=== PATIENT | male | born 1975 | race Caucasian/White ===

== ENCOUNTER 2017-07-27 10:04 | Emergency (ER) | payer SELFPAY ==
[~2017-07-27 10:04] MED LIST: DICL75 PO; HYDR-3533 PO; ROBA750T3 PO
[2017-07-27] MEDS ORDERED: CEPH-460 PO (13:43)
[2017-07-27] MEDS ORDERED: IBUP1TAB7 PO (13:43)
[2017-07-27] MEDS ORDERED: BACT800T5 PO (13:43)
== END 2017-07-27 10:05 | disposition left against medical advice (07) ==
LOC: NED 10:04
DX: S89.91XA Unspecified injury of right lower leg, initial encounter (principal); X58.XXXA Exposure to other specified factors, initial encounter
CPT/HCPCS: 99281

== ENCOUNTER 2017-07-27 13:27 | Emergency (ER) | payer SELFPAY ==
[2017-07-27 13:31] VITALS: BP 108/71; PULSE 82; RESP 17; TEMP 97.8; O2SAT 98
[2017-07-27] MEDS ORDERED: IBUP1TAB7 PO (13:43)
[2017-07-27] MEDS ORDERED: CEPH-460 PO (13:43)
[2017-07-27] MEDS ORDERED: BACT800T5 PO (13:43)
[2017-07-27] MEDS ORDERED: TETANUS/DIPHTHERIA TOXOID ADULT 0.5 ML VIAL IM ONE (13:45)
[2017-07-27] MEDS ORDERED: traMADol HCL 50 MG TAB PO ONE (13:45)
--- NOTE | 2017-07-27 13:49 | PD ---
HPI Chief Complaint: Pain: Acute or Chronic Time Seen by Provider: 13:34 Travel History International Travel<30 days: No Contact w/Intl Traveler<30days: No Traveled to known affect area: No History of Present Illness HPI 42-year-old male presents the ED for evaluation of wound of the right knee. Sustained 3 days ago while the patient was using a nail gun. He states that he was using his leg to brace the wood that he was nailing, shot a nail through the wound and pierced his knee. He is unsure of his last tetanus immunization. On presentation he complains of 8/10 right knee pain, throbbing, worsened by range of motion. No alleviating factors reported. He denies history of MRSA. No treatment attempted at home. PFSH Past Surgical History Abdominal Surgery: Yes (Hernia) Social History Alcohol Use: No Tobacco Use: Yes (1 PPD) Substance Use: No Allergies-Medications (Allergen,Severity, Reaction): Coded Allergies: No Known Allergies (Unverified Adverse Reaction, Unknown, 07/27/17) Reported Meds & Prescriptions Reported Meds & Active Scripts Active Ibuprofen 800 Mg Tab 800 Mg PO Q8H PRN Keflex (Cephalexin) 500 Mg Cap 500 Mg PO Q6H 7 Days Bactrim DS (Sulfamethoxazole-Trimethoprim) 800-160 Mg Tab 1 Tab PO BID Review of Systems Except as stated in HPI: all other systems reviewed are Neg Physical Exam Narrative GENERAL: Well-nourished, well-developed white male no acute distress. SKIN: Focused skin assessment warm/dry. SKIN: There is an indurated area in the right lower leg which measures about 2 cm in diameter. There is moderate purulent drainage. There is a zone of inflammation around it but no lymphangitis. No crepitus. HEAD: Normocephalic. EYES: No scleral icterus. No injection or drainage. NECK: Supple, trachea midline. No JVD or lymphadenopathy. CARDIOVASCULAR: Regular rate and rhythm without murmurs, gallops, or rubs. RESPIRATORY: Breath sounds equal bilaterally. No accessory muscle use. GASTROINTESTINAL: Abdomen soft, non-tender, nondistended. MUSCULOSKELETAL: No cyanosis, or edema. FOCUSED RIGHT LOWER EXTREMITY EXAM: 2+ DP pulse. Patient is able to flex beyond 90 and extend to 0. No tenderness to palpation of the patella or joint lines. Neurovascularly intact distally. Patient's walking with a limp. BACK: Nontender without obvious deformity. No CVA tenderness. Data Data Last Documented VS Vital Signs Date Time Temp Pulse Resp B/P (MAP) Pulse Ox O2 Delivery O2 Flow Rate FiO2 07/27/17 13:31 97.8 82 17 108/71 (83) 98 Orders Orders Tetanus/Diphtheria Tox Adult (Tetanus/Di (07/27/17 13:45) Tramadol (Ultram) (07/27/17 13:45) Ed Discharge Order (07/27/17 13:55) MDM Medical Decision Making Medical Screen Exam Complete: Yes Emergency Medical Condition: Yes Differential Diagnosis Abscess versus cellulitis versus need for tetanus immunization versus other Narrative Course 42-year-old male presents the ED for evaluation of wound of the right knee. Sustained 3 days ago while the patient was using a nail gun. He states that he was using his leg to brace the wood that he was nailing, shot a nail through the wound and pierced his knee. He is unsure of his last tetanus immunization. Denies history of MRSA. Vitals reviewed. On exam there is a cellulitic appearing distal to the joint line. There is a central punctum which weeping a small amount of purulent fluid. No crepitus noted. Patient retains full, active ROM of the knee. Tetanus immunization was updated. I marked the area of concern, provided the patient with Bactrim and Keflex. He is instructed to return to the ED for worsening of symptoms, including redness past the demarcated area. He was given detailed wound care instructions. He indicated understanding of instructions and is agreeable to care plan. Patient is stable and discharged home. Diagnosis Primary Impression: Puncture wound Additional Impression: Abscess Referrals: Primary Care Physician Additional Instructions: Rest, hydrate. Apply warm, moist compresses 4-5 times a day as discussed. Do not squeeze the area as this can drive infection into the deep tissues. You may shower normally. Do not submerge the wound. After bathing pat of wound dry. Allow the wound to air dry for 10-15 minutes. Apply a thin layer of antibiotic ointment and a clean, dry dressing. If the redness extends beyond the camacho made today, return to the ED immediately for further evaluation. Take the antibiotics as they are prescribed, even if your symptoms resolved. Utilize pain medications, as prescribed, as needed. Follow-up with your primary care provider in 2 weeks. Return to the ED for worsening symptoms or any urgent or emergent medical condition. Med/Other Pt SpecificInfo: Prescription(s) given Scripts Ibuprofen (Ibuprofen) 800 Mg Tab 800 MG PO Q8H Y for Pain/Inflammation, #15 TAB 0 Refills Prov: Surinder Garcia MD 07/27/17 Cephalexin (Keflex) 500 Mg Cap 500 MG PO Q6H for Infection for 7 Days, #28 CAP 0 Refills Prov: Surinder Garcia MD 07/27/17 Sulfamethoxazole-Trimethoprim (Bactrim DS) 800-160 Mg Tab 1 TAB PO BID for Infection, #14 TAB 0 Refills Prov: Surinder Garcia MD 07/27/17 Disposition: 01 DISCHARGE HOME Condition: Stable Anabelle Trejo July 27, 2017 13:49
== END 2017-07-27 14:17 | disposition home or self-care (01) ==
LOC: NEPK 13:27
DX: S81.031A Puncture wound without foreign body, right knee, initial encounter (principal); W29.4XXA Contact with nail gun, initial encounter; Y93.89 Activity, other specified; Z23 Encounter for immunization
CPT/HCPCS: 90471; 90714

== ENCOUNTER 2017-07-28 09:48 | Emergency (ER) | payer SELFPAY ==
[~2017-07-28] VITALS: Ht 165.1 cm; Wt 70.5 kg
[~2017-07-28 09:48] MED LIST changes: +BACT800T5 PO; +CEPH-460 PO; -DICL75 PO; -HYDR-3533 PO; +IBUP1TAB7 PO; -ROBA750T3 PO
[2017-07-28 10:09] VITALS: BP 141/90; PULSE 97; RESP 18; TEMP 97.9; O2SAT 96
[2017-07-28 12:21] LABS: ALKALINE PHOSPHATASE 62 U/L (45-117); TOTAL BILIRUBIN ADULT 0.8 MG/DL (0.2-1.0); TOTAL PROTEIN 7.9 GM/DL (6.4-8.2)
[2017-07-28 12:25] LABS: ALBUMIN 3.7 GM/DL (3.4-5.0); ALT (GPT) 59 U/L (12-78); AST (GOT) 52 U/L (15-37); BICARBONATE 26.1 MEQ/L (21.0-32.0); BLOOD UREA NITROGEN 11 MG/DL (7-18); CALCIUM 8.5 MG/DL (8.5-10.1); CHLORIDE 101 MEQ/L (98-107); CREATININE 0.74 MG/DL (0.60-1.30); GLOMERULAR FILTRATION RATE 115 ML/MIN (>89); GLUCOSE,RANDOM 89 MG/DL (74-106); SODIUM (NA) 137 MEQ/L (136-145)
[2017-07-28 12:33] VITALS: BP 130/65; PULSE 82; RESP 25; TEMP 97.6; O2SAT 100
[2017-07-28 12:38] VITALS: O2SAT 99
--- NOTE | 2017-07-28 12:43 | PD ---
HPI Chief Complaint: Skin Problem Time Seen by Provider: 12:26 Travel History International Travel<30 days: No Contact w/Intl Traveler<30days: No Traveled to known affect area: No History of Present Illness HPI Patient comes back to the emergency department for wound recheck. Patient reports he seen here yesterday after having a puncture wound to his right knee occurred 4 days ago. Patient states that picked up the medication started taking it last night. Patient states he doubled up on antibiotics today because he felt the symptoms were getting worse. Patient describes an achiness around site of puncture wound and erythematous. Reports pain radiates distally as burning-like. Patient denies any fevers, nausea, vomiting, IV drug use, or other known injury. PFSH Past Medical History Medical History: Denies Significant Hx Tetanus Vaccination: < 5 Years Influenza Vaccination: No Past Surgical History Abdominal Surgery: Yes (Hernia) Social History Alcohol Use: Yes (1-2 beers weekly) Tobacco Use: Yes (1 PPD) Substance Use: No Allergies-Medications (Allergen,Severity, Reaction): Coded Allergies: No Known Allergies (Unverified Adverse Reaction, Unknown, 07/28/17) Reported Meds & Prescriptions Reported Meds & Active Scripts Active Ibuprofen 800 Mg Tab 800 Mg PO Q8H PRN Keflex (Cephalexin) 500 Mg Cap 500 Mg PO Q6H 7 Days Bactrim DS (Sulfamethoxazole-Trimethoprim) 800-160 Mg Tab 1 Tab PO BID Review of Systems Except as stated in HPI: all other systems reviewed are Neg Physical Exam Narrative GENERAL: Well-developed, well nourished, in no acute distress, and non-ill appearing. SKIN: Area of cellulitis was outlined noted on the lateral aspect of the right knee. Small amount of the cellulitis has gone beyond the inferior aspect of the outline that was made yesterday with a skin marker. No streaking. There is a small area of abscess that is fluctuant and tender to palpation. There is no crepitus. Patient has full range of motion with right knee is able to ambulate. HEAD: Atraumatic. Normocephalic. EYES: Pupils equal and round. EOMI. No scleral icterus. No injection or drainage. ENT: No nasal bleeding or discharge. Mucous membranes pink and moist. NECK: Trachea midline. Supple. No nuclear rigidity. RESPIRATORY: No accessory muscle use. No respiratory distress. MUSCULOSKELETAL: No obvious deformities. No clubbing. No cyanosis. No edema. Full range of motion. NEUROLOGICAL: Awake and alert. No obvious cranial nerve deficits. Motor grossly within normal limits. Normal speech. PSYCHIATRIC: Appropriate mood and affect; insight and judgment normal. Data Data Last Documented VS Vital Signs Date Time Temp Pulse Resp B/P (MAP) Pulse Ox O2 Delivery O2 Flow Rate FiO2 07/28/17 15:16 07/28/17 12:38 99 Room Air 07/28/17 12:33 97.6 82 25 Orders Orders Sepsis Workup Initiated (07/28/17 ) Complete Blood Count With Diff (07/28/17 11:01) Comprehensive Metabolic Panel (07/28/17 11:01) Lactic Acid Sepsis Protocol (07/28/17 11:01) Blood Culture (07/28/17 11:01) Iv Access Insert/Monitor (07/28/17 11:01) Oxygen Administration (07/28/17 11:01) Oximetry (07/28/17 11:01) Blood Glucose (07/28/17 11:01) Wound Culture And Gram Stain (07/28/17 11:04) Knee, Complete (4vws) (07/28/17 ) Lidocai-Epi 1%-1:100,000 Inj (Xylocaine- (07/28/17 12:45) Lidocai-Epi 1%-1:100,000 Inj (Xylocaine- (07/28/17 12:52) Clindamycin 600 Mg/Ns Premix (Cleocin 60 (07/28/17 13:00) Wound Culture And Gram Stain (07/28/17 13:35) Ed Discharge Order (07/28/17 13:47) Labs Laboratory Tests Test 07/28/17 11:20 07/28/17 12:46 Blood Urea Nitrogen 11 MG/DL Creatinine 0.74 MG/DL Random Glucose 89 MG/DL Total Protein 7.9 GM/DL Albumin 3.7 GM/DL Calcium Level 8.5 MG/DL Alkaline Phosphatase 62 U/L Aspartate Amino Transf (AST/SGOT) 52 U/L Alanine Aminotransferase (ALT/SGPT) 59 U/L Total Bilirubin 0.8 MG/DL Sodium Level 137 MEQ/L Potassium Level 3.6 MEQ/L Chloride Level 101 MEQ/L Carbon Dioxide Level 26.1 MEQ/L Anion Gap 10 MEQ/L Estimat Glomerular Filtration Rate 115 ML/MIN Lactic Acid Level 0.8 mmol/L White Blood Count 7.4 TH/MM3 Red Blood Count 3.74 MIL/MM3 Hemoglobin 12.0 GM/DL Hematocrit 34.1 % Mean Corpuscular Volume 91.0 FL Mean Corpuscular Hemoglobin 32.1 PG Mean Corpuscular Hemoglobin Concent 35.3 % Red Cell Distribution Width 13.8 % Platelet Count 237 TH/MM3 Mean Platelet Volume 7.5 FL Neutrophils (%) (Auto) 76.3 % Lymphocytes (%) (Auto) 15.2 % Monocytes (%) (Auto) 7.3 % Eosinophils (%) (Auto) 0.9 % Basophils (%) (Auto) 0.3 % Neutrophils # (Auto) 5.6 TH/MM3 Lymphocytes # (Auto) 1.1 TH/MM3 Monocytes # (Auto) 0.5 TH/MM3 Eosinophils # (Auto) 0.1 TH/MM3 Basophils # (Auto) 0.0 TH/MM3 CBC Comment DIFF FINAL Differential Comment MDM Medical Decision Making Medical Screen Exam Complete: Yes Emergency Medical Condition: Yes Interpretation(s) Last Impressions Knee X-Ray 07/28/17 0000 Signed Impressions: CONCLUSION: No acute fracture Differential Diagnosis Abscess, cellulitis, failed outpatient therapy, retained foreign body, septic joint Narrative Course There is no evidence of necrotizing fasciitis at this time. There is no evidence of local joint space involvement. There is no evidence of deep venous thrombosis. The patient will be discharged and instructed to continue antibiotics. The patient was given signs and symptoms warnings for worsening infection, such as spreading of redness, increasing pain, and/or swelling, associated heat, or fever and instructed to return immediately if these signs or symptoms worsen. The patient is to follow up with physician in 2 days for recheck or return here in 2 days for recheck if unable to establish outpatient follow up. Sooner if worsens or as needed. The patient agrees with plan. Patient in no obvious distress upon re-evaluation. All pertinent laboratory/ Radiology result(s) discussed with patient. Discussed patient with Dr. Morel, who saw and evaluated the patient and is in agreement with plan of care and disposition. Any questions/concerns in reference to patient diagnosis/ condition discussed and clarified prior to patient's discharge. Reinforced sheer importance of close follow up with patient's primary physician or primary care clinic. Instructed patient to return to ED immediately, if symptoms return/ worsen. Patient showed understanding of above instructions. Further instructions and recommendations were detailed in discharge paperwork. Patient ambulated without difficulty out of ED at discharge. Procedures Procedure Narrative INCISION AND DRAINAGE OF ABSCESS: Verbal consent was obtained. The area was prepped. A subcutaneous wheal of 1% Xylocaine with epi with a total number 2 mL was used to anesthetize the area. The area was properly anesthetized. A number 11 scalpel was used to make a 1-cm incision across the area of the abscess. The abscess was drained and irrigated with normal saline. Quarter inch iodoform packing was placed in the wound. Sterile dressing applied by nurse. Patient tolerated procedure well. Patient advised to return here in 2 days to have packing removed and wound rechecked. Patient verbalized understanding. Diagnosis Primary Impression: Cellulitis and abscess of right lower extremity Referrals: [facility] Patient Instructions: Abscess (GEN), Abscess Incision and Drainage (DC), Cellulitis (ED), General Instructions Additional Instructions: Follow-up with your primary care physician or return here in 2 days for recheck. Take all medication as previously prescribed. Apply warm compresses to affected area times daily to drainage. Keep area dry and clean as possible using soap and water. Return to the emergency department sooner if symptoms get worse. Disposition: 01 DISCHARGE HOME Condition: Stable Donal Michelle July 28, 2017 12:43
[2017-07-28] MEDS ORDERED: LIDOCAINE 1%/EPINEPHrine 1:100,000 SOLN 20 ML VIAL INFIL ONE (12:45)
[2017-07-28] MEDS ORDERED: LIDOCAINE 1%/EPINEPHrine 1:100,000 SOLN 30 ML VIAL ONE (12:52)
[2017-07-28 12:57] LABS: AUTOMATED NEUTROPHIL # 5.6 TH/MM3 (1.8-7.7); BASOPHIL % 0.3 % (0.0-2.0); EOSINOPHIL # 0.1 TH/MM3 (0-0.4); EOSINOPHIL % 0.9 % (0.0-4.0); HEMATOCRIT 34.1 % (39.0-51.0); LYMPH % 15.2 % (9.0-44.0); LYMPHOCYTE # 1.1 TH/MM3 (1.0-4.8); MEAN CORPUSCULAR HEMOGLOBIN 32.1 PG (27.0-34.0); MEAN CORPUSCULAR HGB CONC 35.3 % (32.0-36.0); MEAN PLATELET VOLUME 7.5 FL (7.0-11.0); MONO % 7.3 % (0.0-8.0); MONOCYTE # 0.5 TH/MM3 (0-0.9); NEUT % 76.3 % (16.0-70.0); PLATELET COUNT 237 TH/MM3 (150-450); RED BLOOD COUNT 3.74 MIL/MM3 (4.50-5.90); RED CELL DISTRIBUTION WIDTH 13.8 % (11.6-17.2); WHITE BLOOD COUNT 7.4 TH/MM3 (4.0-11.0)
[2017-07-28] MEDS ORDERED: CLINDAMYCIN 600 MG/NS PREMIX 50 ML IV ONE (13:00)
--- NOTE | 2017-07-28 13:23 | RADRPT ---
EXAM DATE: 07/28/2017 1:14 PM EDT AGE/SEX: 42 years / Male INDICATIONS: Inflammation,had nail gun go off in his leg but the nail didn't stay in. CLINICAL DATA: This is the patient's initial encounter. Patient reports that signs and symptoms have been present for 1 day and indicates a pain score of 8/10. MEDICAL/SURGICAL HISTORY: None. None. COMPARISON: No prior [place] exams available for comparison. FINDINGS: Bony structures are intact and in normal alignment. Joints are intact without dislocation or signifi cant arthropathy. Osseous density is normal. Soft tissues are unremarkable. No radiopaque foreign bodies seen. CONCLUSION: No acute fracture Electronically signed by: Long Melchor MD 07/28/2017 1:22 PM EDT
--- NOTE | 2017-07-28 13:33 | PD ---
Data Data Last Documented VS Vital Signs Date Time Temp Pulse Resp B/P (MAP) Pulse Ox O2 Delivery O2 Flow Rate FiO2 07/28/17 12:38 99 Room Air 07/28/17 12:33 97.6 82 25 Orders Orders Sepsis Workup Initiated (07/28/17 ) Complete Blood Count With Diff (07/28/17 11:01) Comprehensive Metabolic Panel (07/28/17 11:01) Lactic Acid Sepsis Protocol (07/28/17 11:01) Blood Culture (07/28/17 11:01) Iv Access Insert/Monitor (07/28/17 11:01) Oxygen Administration (07/28/17 11:01) Oximetry (07/28/17 11:01) Blood Glucose (07/28/17 11:01) Wound Culture And Gram Stain (07/28/17 11:04) Knee, Complete (4vws) (07/28/17 ) Lidocai-Epi 1%-1:100,000 Inj (Xylocaine- (07/28/17 12:45) Lidocai-Epi 1%-1:100,000 Inj (Xylocaine- (07/28/17 12:52) Clindamycin 600 Mg/Ns Premix (Cleocin 60 (07/28/17 13:00) Labs Laboratory Tests Test 07/28/17 11:20 07/28/17 12:46 Blood Urea Nitrogen 11 MG/DL Creatinine 0.74 MG/DL Random Glucose 89 MG/DL Total Protein 7.9 GM/DL Albumin 3.7 GM/DL Calcium Level 8.5 MG/DL Alkaline Phosphatase 62 U/L Aspartate Amino Transf (AST/SGOT) 52 U/L Alanine Aminotransferase (ALT/SGPT) 59 U/L Total Bilirubin 0.8 MG/DL Sodium Level 137 MEQ/L Potassium Level 3.6 MEQ/L Chloride Level 101 MEQ/L Carbon Dioxide Level 26.1 MEQ/L Anion Gap 10 MEQ/L Estimat Glomerular Filtration Rate 115 ML/MIN Lactic Acid Level 0.8 mmol/L White Blood Count 7.4 TH/MM3 Red Blood Count 3.74 MIL/MM3 Hemoglobin 12.0 GM/DL Hematocrit 34.1 % Mean Corpuscular Volume 91.0 FL Mean Corpuscular Hemoglobin 32.1 PG Mean Corpuscular Hemoglobin Concent 35.3 % Red Cell Distribution Width 13.8 % Platelet Count 237 TH/MM3 Mean Platelet Volume 7.5 FL Neutrophils (%) (Auto) 76.3 % Lymphocytes (%) (Auto) 15.2 % Monocytes (%) (Auto) 7.3 % Eosinophils (%) (Auto) 0.9 % Basophils (%) (Auto) 0.3 % Neutrophils # (Auto) 5.6 TH/MM3 Lymphocytes # (Auto) 1.1 TH/MM3 Monocytes # (Auto) 0.5 TH/MM3 Eosinophils # (Auto) 0.1 TH/MM3 Basophils # (Auto) 0.0 TH/MM3 CBC Comment DIFF FINAL Differential Comment MDM Supervised Visit with LEXI: Yes Narrative Course I, Dr. Morel, have reviewed the advance practice practitioner's documentation and am in agreement, met with the patient face to face, made the diagnosis, and the medical decision making was done by me. *My assessment and Findings: Patient returns for second visit in 2 days with right knee cellulitis with abscess. Was incised and drained and cultured by ADILIA Wellington. Patient will continue antibiotics but should improve significantly now with pus drainage. It is near the knee but no clinical suspicion of septic joint Mukesh Morel MD July 28, 2017 13:33
== END 2017-07-28 15:20 | disposition home or self-care (01) ==
LOC: NEPE 09:48
DX: L02.415 Cutaneous abscess of right lower limb (principal); L03.115 Cellulitis of right lower limb; F17.200 Nicotine dependence, unspecified, uncomplicated
CPT/HCPCS: 10060; 73564; 80053; 83605; 85025; 86403; 87040; 87070; 87186; 87205; 96365

== ENCOUNTER 2017-07-31 11:00 | Emergency (ER) | payer SELFPAY ==
[~2017-07-31] VITALS: Ht 165.1 cm; Wt 75.0 kg
[2017-07-31 11:10] VITALS: BP 110/53; PULSE 68; RESP 16; TEMP 98.1; O2SAT 99
[2017-07-31] MEDS ORDERED: BACT800T5 PO (12:37)
--- NOTE | 2017-07-31 12:38 | PD ---
HPI Chief Complaint: Wound/Suture/Staple Re-Check Time Seen by Provider: 12:17 Travel History International Travel<30 days: No Contact w/Intl Traveler<30days: No Traveled to known affect area: No History of Present Illness HPI 42-year-old male presents emergency department for abscess and wound recheck to his right leg just below the right knee from a puncture wound from a nail that occurred on July 27 and he was evaluated here in the ER on that day. He then again returned on July 28 and had a septic workup and incision and drainage of an abscess that had developed to the area. He also had a knee x-ray on July 28 which was unremarkable. He denies fever or vomiting. Reports decreased swelling and redness to the area. Also reports decreased pain. Has been taking his antibiotics as prescribed. Pain is aggravated with ambulation and palpation. Symptoms are mild to moderate in severity. Has been taking ibuprofen for pain with some relief of symptoms. Has no primary care provider. No known allergies. Denies significant past medical history. Has no other medical complaints. No other modifying factors or associated signs and symptoms. PFSH Past Medical History ?: Not Past Surgical History Abdominal Surgery: Yes (Hernia) Social History Alcohol Use: Yes (1-2 beers weekly) Tobacco Use: Yes (1 PPD) Substance Use: No Allergies-Medications (Allergen,Severity, Reaction): Coded Allergies: No Known Allergies (Unverified Adverse Reaction, Unknown, 07/28/17) Reported Meds & Prescriptions Reported Meds & Active Scripts Active Bactrim DS (Sulfamethoxazole-Trimethoprim) 800-160 Mg Tab 1 Tab PO BID 7 Days Ibuprofen 800 Mg Tab 800 Mg PO Q8H PRN Keflex (Cephalexin) 500 Mg Cap 500 Mg PO Q6H 7 Days Bactrim DS (Sulfamethoxazole-Trimethoprim) 800-160 Mg Tab 1 Tab PO BID Review of Systems Except as stated in HPI: all other systems reviewed are Neg Physical Exam Narrative GENERAL: Well-nourished, well-developed male patient, in no acute distress; afebrile, nontoxic-appearing SKIN: Abscess with iodoform packing intact to the right lateral lower knee area ; there is some surrounding erythema that is decreased compared the surgical marker markings around the site. No lymphangitis. Right lower extremity is without edema and is supple and non-tense. There is no fluctuance to the area. There is a zone of inflammation around it but no lymphangitis. Right knee with 90 flexion and full extension. HEAD: Atraumatic. Normocephalic. EYES: Pupils equal and round. No scleral icterus. No injection or drainage. ENT: Mucosa pink and moist. Airway patent. NECK: Trachea midline. CARDIOVASCULAR: Regular rate. RESPIRATORY: No accessory muscle use. GASTROINTESTINAL: Flat. MUSCULOSKELETAL: No obvious deformities. No clubbing. No cyanosis. No edema. NEUROLOGICAL: Awake and alert. Oriented 3. No obvious cranial nerve deficits. Motor grossly within normal limits. Normal speech. PSYCHIATRIC: Appropriate mood and affect; insight and judgment normal. Data Data Last Documented VS Vital Signs Date Time Temp Pulse Resp B/P (MAP) Pulse Ox O2 Delivery O2 Flow Rate FiO2 07/31/17 11:10 98.1 68 16 110/53 (72) 99 Orders Orders Ed Discharge Order (07/31/17 12:38) Crutches (07/31/17 12:38) MDM Medical Decision Making Medical Screen Exam Complete: Yes Emergency Medical Condition: Yes Medical Record Reviewed: Yes Differential Diagnosis Encounter for wound recheck, encounter for abscess recheck, abscess packing removal Narrative Course This is a 42-year-old male who is being followed after a puncture wound to his right lower leg on July 27 and development of abscess with incision and drainage on July 28. He had a septic workup and right knee x-ray on July 28 which were all unremarkable. He has been taking Bactrim as prescribed. He has had improvement in symptoms. Iodoform packing is in place and was removed and patient tolerated well. Erythema surrounding the site is decreased when compared to the surgical marker marking. I remarked the area of erythema with a surgical marker. No lymphangitis. Patient is afebrile and nontoxic- appearing. He has full flexion and extension of the right knee. Patient requests crutches for ambulation. Sterile dressing applied. I did review his medical record and his wound culture was positive for MRSA. Prescribed Bactrim for another 7 days. Instructed patient to return to the emergency department in 2 days for wound recheck. Bactrim prescribed for home. Instructed patient to follow up with primary care provider. Patient verbalizes understanding and agreement with treatment plan. Patient is medically cleared and stable for discharge. Discussed reasons to return to the emergency department. Patient agrees with treatment plan. The patients vital signs are stable and the patient is stable for outpatient follow-up and treatment. Patient discharged home, stable and in no acute distress. Diagnosis Primary Impression: Encounter for recheck of abscess following incision and drainage Additional Impression: Encounter for wound re-check Referrals: [facility] Primary Care Physician Patient Instructions: Abscess (ED), Abscess Follow-up (ED), General Instructions, MRSA (Methicillin-Resistant Staphylococcus Aureus) (ED), Puncture Wound (ED) Additional Instructions: Complete full course of antibiotics Warm compresses to the affected area Keep area clean and dry Ibuprofen or Tylenol as directed and as needed for pain and inflammation Return to the emergency department or follow-up with your primary care provider for wound recheck in 2 days or earlier if symptoms worsen as discussed Follow-up with primary care provider Return to emergency department immediately with worsening of symptoms Med/Other Pt SpecificInfo: Prescription(s) given Scripts Sulfamethoxazole-Trimethoprim (Bactrim DS) 800-160 Mg Tab 1 TAB PO BID for Infection for 7 Days, #14 TAB 0 Refills Prov: Alondra Gee 07/31/17 Disposition: 01 DISCHARGE HOME Condition: Stable Alondra Gee Jul 31, 2017 12:38
== END 2017-07-31 12:58 | disposition home or self-care (01) ==
LOC: NEPD 11:00
DX: Z48.00 Encounter for change or removal of nonsurgical wound dressing (principal); L02.415 Cutaneous abscess of right lower limb; F17.200 Nicotine dependence, unspecified, uncomplicated
CPT/HCPCS: 99281; E0113

== ENCOUNTER 2017-08-23 12:06 | Emergency (ER) | payer SELFPAY ==
[~2017-08-23] VITALS: Ht 165.1 cm; Wt 68.0 kg
[2017-08-23 12:09] VITALS: BP 104/59; PULSE 53; RESP 18; TEMP 98; O2SAT 99
== END 2017-08-23 13:47 | disposition left against medical advice (07) ==
LOC: NED 12:06
DX: Z53.21 Procedure and treatment not carried out due to patient leaving prior to being seen by health care provider (principal)
CPT/HCPCS: 99281